=== PATIENT | female | born 1975 | race Caucasian/White ===

== ENCOUNTER 2019-10-29 06:16 | Emergency (ER) | payer OTHER ==
[2019-10-29 07:40] LABS: ABS Eosinophils 0.2 10^3/ul (0-0.6); ABS Lymphocytes 2.1 10^3/ul (1.0-4.8); ABS Monocytes 0.6 10^3/ul (0-0.8); ABS Neutrophils 5.2 10^3/ul (1.5-7.7); Eosinophil % 2.3 %; Hematocrit 36 % (35-47); Hemoglobin 12.6 g/dL (12.0-16.0); Lymphocyte % 25.6 %; Mean Corpuscular HGB Conc 35 g/dL (31-36); Mean Corpuscular Hemoglobin 31 pg (27-31); Mean Corpuscular Volume 89 fL (80-97); Mean Platelet Volume 7.4 fL (7.4-10.4); Platelet Count 255 10^3/uL (150-450); Red Blood Count 4.05 10^6 /uL (3.70-4.87); Red Cell Distribution Width 14 % (10-15); White Blood Count 8.1 10^3/uL (3.5-10.8)
[2019-10-29 07:57] LABS: Albumin 4.3 g/dL (3.2-5.2); Albumin/Globulin Ratio 1.5 (1-3); BUN/Creatinine Ratio 14.7 (8-20); Calcium 9.3 mg/dL (8.6-10.3); EGFR African American 113.7 (>60); Globulin 2.9 g/dL (2-4); Potassium 4.2 mmol/L (3.5-5.0); Total Bilirubin 0.5 mg/dL (0.2-1.0); Total Protein 7.2 g/dL (6.4-8.9)
[2019-10-29 08:26] VITALS: BP 115/88
--- NOTE | 2019-10-29 10:38 | ED ---
HPI Chest Pain - HPI Summary HPI Summary: Patient is a 44-year-old female with a history of anxiety presenting to the ED with feelings of palpitations and left-sided chest stabbing pain which woke her from sleep at around 1 AM. Chest pain is to the left chest wall and is nonradiating. Denies any recent travel, calf pain or OCPs. She states she has been having palpitations more frequently due to her anxiety. She does not take anything for anxiety. She does see a therapist and has appointment today. She is very tearful on exam. She denies any SI or HI, however she states she is just very depressed. She does not want to speak with anyone today as she has an appointment with her therapist this afternoon. She states she typically has palpitations, worse at night, better during the day, however they have never been associated with chest pain. She has no cardiac history and no family history of cardiac disease. She is a nonsmoker. She does drink approximately 2 -3 alcoholic drinks per day. She takes no medications. No allergies. - History of Current Complaint Chief Complaint: EDChestWallPain Time Seen by Provider: 10/29/19 06:41 Hx Obtained From: Patient Onset/Duration: Started Hours Ago Timing: Constant Initial Severity: Moderate Current Severity: Mild Pain Intensity: 1 Pain Scale Used: 0-10 Numeric Chest Pain Location: Left Anterior Chest Pain Radiates: No Character: Sharp/Stabbing Aggravating Factor(s): Nothing Alleviating Factor(s): Nothing Associated Signs and Symptoms: Positive: Anxiety, Recent Stress. Negative: Dizziness, Shortness of Breath, Nausea, Palpitations, Wheezing, Nasal Congestion - Allergy/Home Medications Allergies/Adverse Reactions: Allergies Allergy/AdvReac Type Severity Reaction Status Date / Time No Known Allergies Allergy Verified 10/29/19 06:29 Home Medications: Home Medications Budesonide/Formote 80/4.5(NF) [Symbicort 80/4.5 (NF)] 1 puff INH BID 10/29/19 [ History Confirmed 10/29/19] PMH/Surg Hx/FS Hx/Imm Hx Previously Healthy: Yes Respiratory History: Reports: Other Respiratory Problems/Disorders - HX OF BRONCHIECTASIS SINCE 2002 - Immunization History Hx Pertussis Vaccination: No Immunizations Up to Date: Yes Infectious Disease History: No Infectious Disease History: Denies: Traveled Outside the [place] in Last 30 Days - Social History Occupation: Employed Full-time Lives: With Family Alcohol Use: Daily Alcohol Amount: 1 glass of wine daily Hx Substance Use: No Substance Use Type: Reports: None Hx Tobacco Use: No Smoking Status (MU): Never Smoked Tobacco Review of Systems Negative: Fever, Chills, Fatigue, Skin Diaphoresis Positive: Chest Pain. Negative: Palpitations Negative: Shortness Of Breath, Cough Genitourinary: Negative Positive: no symptoms reported, see HPI Negative: Arthralgia, Myalgia Positive: Anxious All Other Systems Reviewed And Are Negative: Yes Physical Exam Triage Information Reviewed: Yes Vital Signs On Initial Exam: Initial Vitals Temp Pulse Resp BP Pulse Ox 98.0 F 78 18 118/79 98 10/29/19 06:29 10/29/19 06:29 10/29/19 06:29 10/29/19 06:29 10/29/19 06:29 Vital Signs Reviewed: Yes Appearance: Positive: Well-Appearing, Well-Nourished Skin: Positive: Warm, Skin Color Reflects Adequate Perfusion Head/Face: Positive: Normal Head/Face Inspection Eyes: Positive: EOMI, ZAHEER, Conjunctiva Clear Neck: Positive: Supple, No Lymphadenopathy Respiratory/Lung Sounds: Positive: Clear to Auscultation, Breath Sounds Present Cardiovascular: Positive: RRR, Pulses are Symmetrical in both Upper and Lower Extremities Musculoskeletal: Positive: Normal, Strength/ROM Intact Neurological: Positive: Speech Normal Psychiatric: Positive: Anxious AVPU Assessment: Alert Procedures - Sedation Patient Received Moderate/Deep Sedation with Procedure: No Diagnostics - Vital Signs Vital Signs Temp Pulse Resp BP Pulse Ox 10/29/19 08:25 97.8 F 70 14 115/88 97 10/29/19 08:05 77 18 115/88 97 10/29/19 08:00 66 16 98 10/29/19 07:05 69 21 122/87 100 10/29/19 07:00 60 15 98 10/29/19 06:35 66 15 115/84 97 10/29/19 06:32 67 97 10/29/19 06:29 98.0 F 78 18 118/79 98 - Laboratory Lab Results: Lab Results 10/29/19 10/29/19 10/29/19 Range/Units 07:32 07:32 07:32 WBC 8.1 (3.5-10.8) 10^3/uL RBC 4.05 (3.70-4.87) 10^6 /uL Hgb 12.6 (12.0-16.0) g/dL Hct 36 (35-47) % MCV 89 (80-97) fL MCH 31 (27-31) pg MCHC 35 (31-36) g/dL RDW 14 (10-15) % Plt Count 255 (150-450) 10^3/uL MPV 7.4 (7.4-10.4) fL Neut % (Auto) 64.4 % Lymph % (Auto) 25.6 % [place] % (Auto) 7.3 % Eos % (Auto) 2.3 % Baso % (Auto) 0.4 % Absolute Neuts (auto) 5.2 (1.5-7.7) 10^3/ul Absolute Lymphs (auto) 2.1 (1.0-4.8) 10^3/ul Absolute Monos (auto) 0.6 (0-0.8) 10^3/ul Absolute Eos (auto) 0.2 (0-0.6) 10^3/ul Absolute Basos (auto) 0.0 (0-0.2) 10^3/ul Absolute Nucleated RBC 0.0 10^3/ul Nucleated RBC % 0.0 Sodium 138 (135-145) mmol/L Potassium 4.2 (3.5-5.0) mmol/L Chloride 106 (101-111) mmol/L Carbon Dioxide 27 (22-32) mmol/L Anion Gap 5 (2-11) mmol/L BUN 10 (6-24) mg/dL Creatinine 0.68 (0.51-0.95) mg/dL Est GFR ( Amer) 113.7 (>60) Est GFR (Non-Af Amer) 94.0 (>60) BUN/Creatinine Ratio 14.7 (8-20) Glucose 89 (70-100) mg/dL Lactic Acid 1.2 (0.5-2.0) mmol/L Calcium 9.3 (8.6-10.3) mg/dL Total Bilirubin 0.50 (0.2-1.0) mg/dL AST 17 (13-39) U/L ALT 17 (7-52) U/L Alkaline Phosphatase 63 (34-104) U/L Troponin I 0.00 (<0.03) ng/mL Total Protein 7.2 (6.4-8.9) g/dL Albumin 4.3 (3.2-5.2) g/dL Globulin 2.9 (2-4) g/dL Albumin/Globulin Ratio 1.5 (1-3) Result Diagrams: 10/29/19 07:32 10/29/19 07:32 Lab Statement: Any lab studies that have been ordered have been reviewed, and results considered in the medical decision making process. Chest Pain Course/Dx - Course Course Of Treatment: This patient is evaluated for anxiety symptoms and palpitations which began in the cream tester hours around 1 AM. She states symptoms have subsided somewhat, however continues to endorse left-sided chest pain which is sharp in nature. This is nonradiating and associated with worsening symptoms only with feeling anxious. Labs obtained and are unremarkable including a troponin 0.00. Vital signs are stable. Normal sinus rhythm with a rate of 65. She is kept on a cardiopulmonary monitor while in the ED. No acute changes identified. Patient does state she is feeling better , however she remains tearful and states she is very anxious. Offered anxiety medication, however patient declined. She states she will follow-up with her therapist today. She is given a prescription for Ativan, starting at a low dose for anxiety symptoms. - Chest Pain Differential Diagnosis/HQI/PQRI: Angina, Chest Wall - Diagnoses Provider Diagnoses: Anxiety Discharge ED - Sign-Out/Discharge Documenting (check all that apply): Patient Departure - Discharge Plan Condition: Stable Disposition: HOME Prescriptions: LORazepam TAB(*) [Ativan 0.5 MG TAB (*)] 0.5 mg PO Q6H PRN #18 tab MDD 4 PRN Reason: Anxiety Patient Education Materials: Lorazepam (By mouth), Anxiety (ED) Referrals: David Mora NP [Primary Care Provider] - Additional Instructions: Please follow up with therapist as scheduled 0.5mg up to four times daily for anxiety You may take up to 1mg four times daily for severe anxiety not well controlled with 0.5mg. - Billing Disposition and Condition Condition: STABLE Disposition: Home
== END 2019-10-29 08:25 | disposition home or self-care (01) ==
LOC: ED 06:16
DX: F41.9 Anxiety disorder, unspecified (principal)
CPT/HCPCS: 36415; 71046; 80053; 83605; 84484; 85025; 93005; 99283